=== PATIENT | female | born 1995 | race Two or more races ===

== ENCOUNTER 2017-01-15 21:27 | Emergency (ER) | payer OTHER ==
[~2017-01-15] VITALS: Ht 170.2 cm; Wt 81.6 kg
[2017-01-15] MEDS ORDERED: NKM (21:34)
--- NOTE | 2017-01-15 21:43 | Emergency Room Report ---
History of Present Illness General Chief Complaint: Back Pain-No Injury Source: Patient Present Illness HPI This is a 21-year-old female with no past medical history. She presents with chief complaint of left lower back pain. Onset for last few days. Hurts when she been over. Hurts when she sat or room. Time. No radiation. Noncontrast bowel or urine. She also feeling nauseous. Last menstrual flow was 15th. Her menstruation has been irregular sister lasts maybe. No other complaint. No dysuria frequency. Allergies: Coded Allergies: No Known Allergies (Unverified , 01/15/17) Patient History Past Medical History: see triage record, old chart reviewed Past Surgical History: none Pertinent Family History: none Social History: Denies: smoking Last Menstrual Period: nov Now: No Immunizations: other Reviewed Nursing Documentation: PMH: Agreed, PSxH: Agreed Nursing Documentation-PMH Past Medical History: No Stated History Review of Systems Eye: Denies: blurred vision, eye pain ENT: Denies: ear pain, nose congestion, throat swelling Respiratory: Denies: cough, shortness of breath Cardiovascular: Denies: chest pain, palpitations Gastrointestinal: Denies: abdominal pain, diarrhea, nausea, vomiting Musculoskeletal: Reports: back pain, Denies: joint pain Skin: Denies: rash Neurological: Denies: headache, numbness Endocrine: Denies: increased thirst, increased urine Hematologic/Lymphatic: Denies: easy bruising All Other Systems: negative except mentioned in HPI Physical Exam Vital Signs Date Time Temp Pulse Resp B/P Pulse Ox O2 Delivery O2 Flow Rate FiO2 01/15/17 21:28 97.9 102 16 131/70 99 Room Air vitals normal Sp02 EP Interpretation: reviewed, normal General Appearance: well appearing, no apparent distress, alert Head: normocephalic, atraumatic Eyes: bilateral eye EOMI, bilateral eye PERRL ENT: hearing grossly normal, normal pharynx Neck: full range of motion, supple, no meningismus Respiratory: chest non-tender, lungs clear, normal breath sounds Cardiovascular #1: regular rate, rhythm, no murmur Gastrointestinal: normal bowel sounds, non tender, no mass, no organomegaly, no bruit, non-distended Musculoskeletal: back normal - Mild tenderness over the left lower paraspinous muscle of the lumbar spine. No step-off. No anesthesia., gait/station normal, normal range of motion Neurologic: alert, oriented x3 Psychiatric: mood/affect normal Skin: warm/dry Medical Decision Making Diagnostic Impression: Primary Impression: UTI (urinary tract infection) during Qualified Codes: O23.41 - Unspecified infection of urinary tract in , first trimester Additional Impression: Qualified Codes: Z3A.01 - Less than 8 weeks gestation of ER Course Patient presents with 2 issues. She complaining of feeling nauseous and is . No bleeding or pain. I see no criteria for emergent ultrasound. I did send a beta hCG level. She also has back pain which is probably muscle skeletal versus early pyelonephritis versus a descending UTI. She does have a urinary tract infection. We'll go ahead and treat. No evidence of polynephritis. No evidence of sepsis. We'll discharge home. Last Vital Signs Date Time Temp Pulse Resp B/P Pulse Ox O2 Delivery O2 Flow Rate FiO2 01/15/17 21:28 97.9 102 16 131/70 99 Room Air Status: improved Disposition: HOME, SELF-CARE Condition: Stable Scripts Ondansetron (Zofran) 4 Mg Tablet 4 MG ORAL Q6H Y for Nausea & Vomiting, #30 TAB 0 Refills Prov: MARC BROWNE M.D. 01/15/17 Cephalexin* (KEFLEX*) 500 Mg Capsule 500 MG ORAL TID, #21 CAP 0 Refills Prov: MARC BROWNE M.D. 01/15/17 Additional Instructions: Followup with your Dr. in 2-3 days. Take a vitamins every day. Return for increasing pain, fever, chills, or any concern. MARC BROWNE M.D. Jan 15, 2017 21:43
[2017-01-15] MEDS ORDERED: Acetaminophen 500mg (ES) tab ORAL ONE (21:45)
[2017-01-15 22:04] LABS: APPEARANCE,URINE SLIGHTLY CLOUDY; KETONES,URINE NEGATIVE (NEGATIVE); LEUKOCYTE ESTERASE ,URINE 3+ (NEGATIVE); NITRITE,URINE NEGATIVE (NEGATIVE); PH,URINE 5 (4.5-8.0); PROTEIN,URINE NEGATIVE (NEGATIVE); UROBILINOGEN,URINE NORMAL MG/DL (0.0-1.0)
[2017-01-15 22:14] LABS: BACTERIA,URINE MODERATE /HPF; RBC,URINE 0-2 /HPF (0 - 2); SQUAMOUS EPITHELIAL CELL,UR FEW /LPF (NONE/OCC)
[2017-01-15] MEDS ORDERED: ZOFRAN4 MG ORAL (22:26)
[2017-01-15] MEDS ORDERED: KEFLEX500 MG ORAL (22:26)
[2017-01-15] MEDS ORDERED: Cephalexin 500mg cap ORAL ONE (22:30)
[2017-01-15 22:39] VITALS: BP 129/73
[2017-01-15 22:40] VITALS: BP 129/73
== END 2017-01-15 22:41 | disposition home or self-care (01) ==
LOC: EMR 21:55
DX: O23.41 Unspecified infection of urinary tract in pregnancy, first trimester (principal); Z3A.01 Less than 8 weeks gestation of pregnancy
CPT/HCPCS: 36415; 81003; 81025; 84702; 87086; 99284

== ENCOUNTER 2017-01-16 18:56 | Emergency (ER) | payer OTHER ==
[~2017-01-16] VITALS: Ht 172.7 cm; Wt 81.6 kg
[~2017-01-16 18:56] MED LIST: KEFLEX500 MG ORAL; NKM; ZOFRAN4 MG ORAL
[2017-01-16 19:30] VITALS: BP 120/63
[2017-01-16 19:57] VITALS: BP 120/63
--- NOTE | 2017-01-17 00:24 | Emergency Room Report ---
History of Present Illness General Chief Complaint: Multiple Trauma/Fall Source: Patient Present Illness HPI Patient is a 21-year-old female presented after a fall at work. Patient reported having a slip and fall. She had recently been seen for low back pain after a urinary tract infection.Patient was noted to have positive test on prior visit. Patient had been started on Keflex. The patient concerned that she may have some problem after the fall. Patient per having some mild knee pain. The patient is ambulatory without assistance. Allergies: Coded Allergies: No Known Allergies (Unverified , 01/15/17) Patient History Past Medical History: see triage record Last Menstrual Period: nov Now: Yes - 7 weeks Reviewed Nursing Documentation: PMH: Agreed, PSxH: Agreed Nursing Documentation-PMH Past Medical History: No Stated History Review of Systems All Other Systems: negative except mentioned in HPI Physical Exam Vital Signs Date Time Temp Pulse Resp B/P Pulse Ox O2 Delivery O2 Flow Rate FiO2 01/16/17 19:20 98.1 90 16 120/63 99 Room Air Sp02 EP Interpretation: reviewed, normal General Appearance: normal inspection, well appearing, no apparent distress, alert, GCS 15 Head: atraumatic ENT: normal ENT inspection, hearing grossly normal, normal voice Neck: normal inspection, full range of motion, supple, no bony tend Respiratory: normal inspection, lungs clear, normal breath sounds, no respiratory distress, no retraction, no wheezing Cardiovascular #1: regular rate, rhythm, no edema Gastrointestinal: normal inspection, normal bowel sounds, non tender, soft, no guarding, no hernia Genitourinary: no CVA tenderness Musculoskeletal: normal inspection, back normal, normal range of motion Neurologic: normal inspection, alert, responsive, speech normal Psychiatric: normal inspection, judgement/insight normal, mood/affect normal Skin: normal inspection, normal color, no rash Medical Decision Making Diagnostic Impression: Primary Impression: Fall Additional Impressions: Lumbosacral strain ER Course Patient presented for fall. Differential diagnosis included was not limited to the contusion, sprain, fracture among others. Patient was noted to be . The patient does not appear require x-ray imaging at this time. Patient was given the patient prior prescriptions for antibiotics. The bedside ultrasound showed no evident free fluid or intrauterine is appears the patient patient is very early . The patient is advised followup with [facility]. Last Vital Signs Date Time Temp Pulse Resp B/P Pulse Ox O2 Delivery O2 Flow Rate FiO2 01/16/17 19:57 98.1 16 120/63 99 Room Air 01/16/17 19:30 94 Status: improved Disposition: HOME, SELF-CARE Condition: Stable Referrals: [facility],REFERR[facility] (PCP) Patient Instructions: Back Pain in Jamie Gonsalez Jan 17, 2017 00:24
== END 2017-01-16 20:00 | disposition home or self-care (01) ==
LOC: EMR 19:58
DX: O26.891 Other specified pregnancy related conditions, first trimester (principal); Z3A.00 Weeks of gestation of pregnancy not specified; S39.012A Strain of muscle, fascia and tendon of lower back, initial encounter; W01.0XXA Fall on same level from slipping, tripping and stumbling without subsequent striking against object, initial encounter; Y92.9 Unspecified place or not applicable; Y99.0 Civilian activity done for income or pay
CPT/HCPCS: 99284

== ENCOUNTER 2017-02-10 15:06 | Emergency (ER) | payer OTHER ==
[~2017-02-10] VITALS: Ht 165.1 cm; Wt 90.7 kg
[2017-02-10] MEDS ORDERED: Metoclopramide 10mg/2ml Inj IVP ONE (15:30)
--- NOTE | 2017-02-10 15:39 | Emergency Room Report ---
History of Present Illness General Chief Complaint: Vomiting Source: Patient Present Illness HPI The patient is a 21-year-old female at 7 weeks gestation presenting for nausea and vomiting which began one week prior. The patient was seen at [facility] yesterday where ultrasound was done and was unremarkable. The patient states that she has had continued nausea and has vomited 3 times this morning. Patient is unable to eat or drink as usual. The pt denies other symptoms including F, chills, abd pain, vaginal DC, hematuria, flank pain, REGAN, dizziness , swelling Allergies: Coded Allergies: No Known Allergies (Unverified , 01/15/17) Patient History Past Medical History: see triage record Pertinent Family History: none Reviewed Nursing Documentation: PMH: Agreed, PSxH: Agreed Nursing Documentation-PMH Past Medical History: No Stated History Review of Systems All Other Systems: negative except mentioned in HPI Physical Exam Vital Signs Date Time Temp Pulse Resp B/P Pulse Ox O2 Delivery O2 Flow Rate FiO2 02/10/17 15:26 98.1 118 20 131/71 99 Room Air Sp02 EP Interpretation: reviewed, normal General Appearance: no apparent distress, alert, GCS 15, non-toxic Head: normocephalic, atraumatic Eyes: bilateral eye PERRL, bilateral eye normal inspection ENT: hearing grossly normal, normal pharynx, no angioedema, normal voice Neck: full range of motion, supple/symm/no masses Respiratory: chest non-tender, lungs clear, normal breath sounds, speaking full sentences Gastrointestinal: normal bowel sounds, soft, no mass, no guarding Genitourinary: normal inspection, no CVA tenderness Musculoskeletal: back normal, gait/station normal, normal range of motion, non- tender Neurologic: alert, oriented x3, responsive, motor strength/tone normal, sensory intact, speech normal Psychiatric: judgement/insight normal, memory normal, mood/affect normal, no suicidal/homicidal ideation Skin: normal color, no rash, warm/dry, well hydrated Lymphatic: no adenopathy Medical Decision Making PA Attestation Dr. barrios is my supervising physician. Patient management was discussed with my supervising physician Diagnostic Impression: Primary Impression: UTI in Additional Impression: Nausea/vomiting in ER Course The patient is a 21-year-old female at 7 weeks gestation presenting for nausea and vomiting Differential diagnoses considered include but not limited to Early , threatened , UTI PE: Vitals WNL. NAD. Abdomen: Normal appearance. Non distended. No ecchymosis. Normal BS. Non TTP. No McBurney point tenderness. No guarding. No CVA tenderness Labs: CBC shows mild leukocytosis. No anemia CMP unremarkable. No signs of dehydration Urinalysis is consistent with urinary tract infection Beta hCG is low for suspected gestational age. The patient is given IV fluids and Reglan and is feeling better. Patient has not vomited The patient is informed of her results and needs to FU with OBGYN as discussed The patient is discharged with a prescription for Keflex, vitamin B 6, and doxylamine Laboratory Tests Test 02/10/17 15:30 02/10/17 15:42 Urine Color Pale yellow Urine Appearance Slightly cloudy Urine pH 6 (4.5-8.0) Urine Specific [place] 1.025 (1.005-1.035) Urine Protein Negative (NEGATIVE) Urine Glucose (UA) Negative (NEGATIVE) Urine Ketones Negative (NEGATIVE) Urine Occult Blood Negative (NEGATIVE) Urine Nitrite Negative (NEGATIVE) Urine Bilirubin Negative (NEGATIVE) Urine Urobilinogen Normal MG/DL (0.0-1.0) Urine Leukocyte Esterase 3+ (NEGATIVE) H Urine RBC 5-10 /HPF (0 - 2) H Urine WBC 10-15 /HPF (0 - 2) H Urine Squamous Epithelial Cells Many /LPF (NONE/OCC) H Urine Bacteria Moderate /HPF (NONE) H Urine HCG, Qualitative Positive White Blood Count 11.4 K/UL (4.8-10.8) H Red Blood Count 4.39 M/UL (4.20-5.40) Hemoglobin 13.7 G/DL (12.0-16.0) Hematocrit 40.4 % (37.0-47.0) Mean Corpuscular Volume 92 FL (80-99) Mean Corpuscular Hemoglobin 31.1 PG (27.0-31.0) H Mean Corpuscular Hemoglobin Concent 33.8 G/DL (32.0-36.0) Red Cell Distribution Width 11.3 % (11.6-14.8) L Platelet Count 349 K/UL (150-450) Mean Platelet Volume 7.5 FL (6.5-10.1) Neutrophils (%) (Auto) 63.7 % (45.0-75.0) Lymphocytes (%) (Auto) 26.9 % (20.0-45.0) Monocytes (%) (Auto) 7.6 % (1.0-10.0) Eosinophils (%) (Auto) 0.7 % (0.0-3.0) Basophils (%) (Auto) 1.0 % (0.0-2.0) Sodium Level 140 mEQ/L (135-145) Potassium Level 4.0 mEQ/L (3.4-4.9) Chloride Level 100 mEQ/L (98-107) Carbon Dioxide Level 23 mEQ/L (20-30) Anion Gap 17 (5-15) H Blood Urea Nitrogen 12 mg/dL (7-23) Creatinine 0.5 mg/dL (0.5-0.9) Estimate Glomerular Filtration Rate > 60 mL/min (>60) Glucose Level 99 mg/dL (74-106) Calcium Level 9.8 mg/dL (8.6-10.2) Total Bilirubin 0.3 mg/dL (0.0-1.2) Aspartate Amino Transferase (AST) 28 U/L (5-40) Alanine Aminotransferase (ALT) 32 U/L (3-33) Alkaline Phosphatase 85 U/L (35-104) Total Protein 7.3 g/dL (6.6-8.7) Albumin 4.1 g/dL (3.5-5.2) Globulin 3.2 g/dL Albumin/Globulin Ratio 1.2 (1.0-2.7) Lipase 28 U/L (< 60) Human Chorionic Gonadotropin, Quant 81878 mIU/mL Lab Results Impression CBC shows mild leukocytosis. No anemia CMP unremarkable. No signs of dehydration Urinalysis is consistent with urinary tract infection Beta hCG is low for suspected gestational age. Last Vital Signs Date Time Temp Pulse Resp B/P Pulse Ox O2 Delivery O2 Flow Rate FiO2 02/10/17 15:26 98.1 118 20 131/71 99 Room Air Status: improved Disposition: HOME, SELF-CARE Condition: Improved Scripts Pyridoxine Hcl (PYRIDOXINE HCL) 25 Mg Tablet 25 MG PO Q8HR, #30 TAB Prov: TERZIAN,GRAYSON P.A. 02/10/17 Doxylamine Succinate (SLEEP AID) 25 Mg Tablet 25 MG PO BID, #30 TAB Prov: TERZIAN,GRAYSON P.A. 02/10/17 Cephalexin* (KEFLEX*) 500 Mg Capsule 500 MG ORAL EVERY 6 HOURS, #28 CAP Prov: GRAYSON CLEMENS 02/10/17 GRAYSON CLEMENS Feb 10, 2017 15:39
[2017-02-10 15:56] LABS: EOSINOPHILS % (AUTO) 0.7 % (0.0-3.0); LYMPHOCYTES % (AUTO) 26.9 % (20.0-45.0); MEAN CORPUSCULAR HEMOGLOBIN 31.1 PG (27.0-31.0); MEAN CORPUSCULAR HGB CONC 33.8 G/DL (32.0-36.0); MEAN CORPUSCULAR VOLUME 92 FL (80-99); MEAN PLATELET VOLUME 7.5 FL (6.5-10.1); MONOCYTES % (AUTO) 7.6 % (1.0-10.0); NEUTROPHILS % (AUTO) 63.7 % (45.0-75.0); PLATELET COUNT 349 K/UL (150-450); RED BLOOD COUNT 4.39 M/UL (4.20-5.40); RED CELL DISTRIBUTION WIDTH 11.3 % (11.6-14.8); WHITE BLOOD COUNT 11.4 K/UL (4.8-10.8)
[2017-02-10 16:15] VITALS: BP 131/71
[2017-02-10 16:23] LABS: ALANINE AMINOTRANSFERASE 32 U/L (3-33); ALBUMIN/GLOBULIN RATIO 1.2 (1.0-2.7); ANION GAP 17 (5-15); ASPARTATE AMINO TRANSFERASE 28 U/L (5-40); CALCIUM 9.8 mg/dL (8.6-10.2); CARBON DIOXIDE 23 mEQ/L (20-30); CHLORIDE 100 mEQ/L (98-107); CREATININE 0.5 mg/dL (0.5-0.9); GLOMERULAR FILTRATION RATE > 60 mL/min (>60); HEMOLYSIS 5; LIPASE 28 U/L (< 60); SODIUM 140 mEQ/L (135-145); TOTAL PROTEIN 7.3 g/dL (6.6-8.7)
[2017-02-10 16:51] LABS: APPEARANCE,URINE SLIGHTLY CLOUDY; KETONES,URINE NEGATIVE (NEGATIVE); LEUKOCYTE ESTERASE ,URINE 3+ (NEGATIVE); NITRITE,URINE NEGATIVE (NEGATIVE); PH,URINE 6 (4.5-8.0); PROTEIN,URINE NEGATIVE (NEGATIVE); UROBILINOGEN,URINE NORMAL MG/DL (0.0-1.0)
[2017-02-10 16:59] LABS: BACTERIA,URINE MODERATE /HPF; SQUAMOUS EPITHELIAL CELL,UR MANY /LPF (NONE/OCC)
[2017-02-10] MEDS ORDERED: SLEEP AID25 M1 PO (17:19)
[2017-02-10] MEDS ORDERED: CEPHALEXIN500 MG ORAL (17:19)
[2017-02-10] MEDS ORDERED: PYRIDOXINE HCL25 MG PO (17:19)
[2017-02-10 17:27] VITALS: BP 115/72
== END 2017-02-10 17:42 | disposition home or self-care (01) ==
LOC: EMR 16:31
DX: O23.41 Unspecified infection of urinary tract in pregnancy, first trimester (principal); O26.891 Other specified pregnancy related conditions, first trimester; R11.2 Nausea with vomiting, unspecified; Z3A.01 Less than 8 weeks gestation of pregnancy
CPT/HCPCS: 36415; 80053; 81003; 81025; 83690; 84702; 85025; 87086; 96360; 96374; 99284; J2765

== ENCOUNTER 2018-05-14 07:24 | Emergency (ER) | payer MEDICAID, OTHER ==
[~2018-05-14] VITALS: Ht 167.6 cm; Wt 99.8 kg
[~2018-05-14 07:24] MED LIST changes: +CEPHALEXIN500 MG ORAL; +PYRIDOXINE HCL25 MG PO; +SLEEP AID25 M1 PO
[2018-05-14 07:35] VITALS: BP 120/62
--- NOTE | 2018-05-14 07:38 | Emergency Room Report ---
History of Present Illness General Chief Complaint: Flu Like Symptoms Source: Patient Present Illness HPI Patient has been ill since 05/08. Sore throat, cough - phlegm not with color, congestion, aches. No documented fever, but feels feverish and occasional chills. No NVD or dysuria. Had taken tylenol with some improvement. No wheezing (had had in past visits). C/O pain in her throat and head 8/10, burning in throat and pressure in head. Better with meds. Cough had worsened in last 24 hours. Menses is irregular and only has spotting due to IUD. She doesn't think she is . She had been working, but now feels ill and unable. 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 Reviewed Nursing Documentation: PMH: Agreed; PSxH: Agreed Nursing Documentation-PMH Past Medical History: No Stated History Review of Systems All Other Systems: negative except mentioned in HPI Physical Exam Vital Signs Date Time Temp Pulse Resp B/P (MAP) Pulse Ox O2 Delivery O2 Flow Rate FiO2 05/14/18 07:26 98.3 87 18 120/62 96 Room Air 98.2 General Appearance: well appearing, no apparent distress, GCS 15, non-toxic Head: normocephalic, atraumatic Eyes: bilateral eye normal inspection, bilateral eye PERRL ENT: hearing grossly normal, normal pharynx - slight pink/red, normal voice, TMs + canals normal, moist mucus membranes Neck: full range of motion, supple Respiratory: chest non-tender, lungs clear, normal breath sounds, no respiratory distress, speaking full sentences Cardiovascular #1: regular rate, rhythm Cardiovascular #2: 2+ radial (L) Gastrointestinal: normal inspection, normal bowel sounds, non tender Genitourinary: no CVA tenderness Musculoskeletal: no calf tenderness Neurologic: alert, oriented x3, normal gait, grossly normal Psychiatric: mood/affect normal Skin: no rash Medical Decision Making Diagnostic Impression: Primary Impression: URI (upper respiratory infection) Qualified Codes: J06.9 - Acute upper respiratory infection, unspecified ER Course Patient presents with URI. Ddx: pharyngitis, viral syndrome, bronchitis, PNA. Based on sy and exam, PNA excluded and imaging not indicated. Lab also not indicated (has IUD and no dysuria). Patient treated here with some improvement. Discussed treatment plan. Patient stable for outpatient observation and treatment. Last Vital Signs Date Time Temp Pulse Resp B/P (MAP) Pulse Ox O2 Delivery O2 Flow Rate FiO2 05/14/18 07:55 98.2 85 18 120/62 96 Room Air 208.8 Status: improved Disposition: HOME, SELF-CARE Condition: Improved Scripts Chlorpheniramine Maleate (CHLOR-TRIMETON) 4 Mg Tablet 4 MG PO Q6HR PRN for congestion, #10 TAB Prov: Humberto Martins M.D. 05/14/18 Guaifenesin/Codeine Phos* (ROBITUSSIN AC*) 118 Ml Liquid 5 ML ORAL Q6H PRN for For Cough, #90 ML 0 Refills Prov: Humberto Martins M.D. 05/14/18 Humberto Martins M.D. May 14, 2018 07:38
[2018-05-14] MEDS ORDERED: CHLOR-TRIMETON4 MG PO (07:42)
[2018-05-14] MEDS ORDERED: GUAIFENESIN-CO118 M1 ORAL (07:42)
[2018-05-14] MEDS ORDERED: Guaifenesin/DM 10ml syrup ORAL PRN (07:45)
[2018-05-14 07:55] VITALS: BP 120/62
== END 2018-05-14 07:55 | disposition home or self-care (01) ==
LOC: EMR 07:40
DX: J06.9 Acute upper respiratory infection, unspecified (principal)
CPT/HCPCS: 99283

== ENCOUNTER 2018-09-16 00:12 | Emergency (ER) | payer SELFPAY ==
[~2018-09-16] VITALS: Ht 167.6 cm; Wt 95.3 kg
[~2018-09-16 00:12] MED LIST changes: +CHLOR-TRIMETON4 MG PO; +GUAIFENESIN-CO118 M1 ORAL
[2018-09-16 00:25] VITALS: BP 127/87
[2018-09-16] MEDS ORDERED: Ketorolac 60mg Inj IM ONE (01:00)
[2018-09-16 01:01] LABS: APPEARANCE,URINE SLIGHTLY CLOUDY; BILIRUBIN, URINE NEGATIVE (NEGATIVE); GLUCOSE, URINE (UA) NEGATIVE (NEGATIVE); KETONES,URINE NEGATIVE (NEGATIVE); LEUKOCYTE ESTERASE ,URINE 1+ (NEGATIVE); NITRITE,URINE NEGATIVE (NEGATIVE); PH,URINE 5 (4.5-8.0); PROTEIN,URINE 1+ (NEGATIVE); UROBILINOGEN,URINE NORMAL MG/DL (0.0-1.0)
[2018-09-16 01:06] LABS: COLOR,URINE YELLOW
[2018-09-16] MEDS ORDERED: Ketorolac 30mg Inj IV ONE (01:15)
[2018-09-16 01:32] LABS: BASOPHILS % (AUTO) 1.1 % (0.0-2.0); EOSINOPHILS % (AUTO) 1.4 % (0.0-3.0); HEMATOCRIT 43.2 % (37.0-47.0); HEMOGLOBIN 14.6 G/DL (12.0-16.0); LYMPHOCYTES % (AUTO) 37.9 % (20.0-45.0); MEAN CORPUSCULAR VOLUME 89 FL (80-99); MONOCYTES % (AUTO) 6.4 % (1.0-10.0); NEUTROPHILS % (AUTO) 53.2 % (45.0-75.0); PLATELET COUNT 322 K/UL (150-450); RED BLOOD COUNT 4.84 M/UL (4.20-5.40); RED CELL DISTRIBUTION WIDTH 11.1 % (11.6-14.8); WHITE BLOOD COUNT 9.4 K/UL (4.8-10.8)
[2018-09-16 01:41] LABS: ANION GAP 11 mmol/L (5-15); BLOOD UREA NITROGEN 13 mg/dL (7-18); CALCIUM 9.4 MG/DL (8.5-10.1); CARBON DIOXIDE 25 MMOL/L (21-32); CHLORIDE 105 MMOL/L (98-107); CREATININE 0.6 MG/DL (0.55-1.30); POTASSIUM 3.8 MMOL/L (3.5-5.1); SODIUM 141 MMOL/L (136-145)
[2018-09-16 01:46] LABS: ALANINE AMINOTRANSFERASE 21 U/L (12-78); ALBUMIN 4.1 G/DL (3.4-5.0); ALKALINE PHOSPHATASE 10 U/L (46-116); ASPARTATE AMINO TRANSFERASE 15 U/L (15-37); BILIRUBIN,TOTAL 0.7 MG/DL (0.2-1.0)
[2018-09-16] MEDS ORDERED: cefTRIAXone 1 GM in NS 55 ML IVPB ONE (02:45)
--- NOTE | 2018-09-16 02:48 | Diagnostic Imaging Report ---
EXAM: XR Pelvis, 1 or 2 Views CLINICAL HISTORY: PAIN TECHNIQUE: Frontal view of the pelvis. COMPARISON: No relevant prior studies available. FINDINGS: Bones/joints: No dislocation. No displaced fracture. No discrete bony lesion. The upper sacrum and iliac crest somewhat limited due to overlying soft tissue/body habitus Soft tissues: IUD present projecting over the central pelvis. IMPRESSION: No acute bony abnormality in the single frontal view. IUD present.
--- NOTE | 2018-09-16 03:49 | Emergency Room Report ---
History of Present Illness General Chief Complaint: Pain Source: Patient Present Illness HPI Patient presents with months of lower back pain. Worsened over last 2 days and having trouble sleeping. Pain is more L sided and radiates down into hip area. Not radiate to lower leg. No numbness. Pain rated 10/10, burning and aching. No constant and worse when bends over. No fevers, blood thinners, oncologic problems. Not feel she is . No dysuria. No rashes. Motrin controlled in past, not now. Hard to sleep with pain. No prior injuries. No h/o arthritis. Job with bending and lifting. No URI sy, cough, chest pain, NVD, change in bowels, extremity pain or edema. Some stress. LNMP normal. No vaginal discharge. 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 Period: 08/14/18 Now: No : 2 Para: 2 Reviewed Nursing Documentation: PMH: Agreed; PSxH: Agreed Nursing Documentation-PMH Past Medical History: No Stated History Review of Systems All Other Systems: negative except mentioned in HPI Physical Exam Vital Signs Date Time Temp Pulse Resp B/P (MAP) Pulse Ox O2 Delivery O2 Flow Rate FiO2 09/16/18 00:14 97.9 90 15 127/87 97 Room Air Sp02 EP Interpretation: reviewed, normal General Appearance: well appearing, no apparent distress, GCS 15 Head: normocephalic Eyes: bilateral eye normal inspection, bilateral eye PERRL ENT: moist mucus membranes Neck: supple Respiratory: lungs clear, normal breath sounds Cardiovascular #1: regular rate, rhythm Cardiovascular #2: 2+ radial (R), 2+ dorsalis pedis (R), 2+ dorsalis pedis (L) Gastrointestinal: normal inspection, normal bowel sounds, non tender, no mass, non-distended Musculoskeletal: gait/station normal, normal range of motion - with L hip and SI joint pain with movement. SLR neg for sciatica, other - min paraspinous tenderness L, more in SI joint area. No bone tenderness Neurologic: alert, oriented x3, motor strength/tone normal, DTRs symmetric, sensory intact, normal gait, speech normal Psychiatric: anxious Skin: normal inspection, warm/dry Medical Decision Making Diagnostic Impression: Primary Impression: Hip bursitis, left Qualified Codes: M70.62 - Trochanteric bursitis, left hip Additional Impression: UTI (urinary tract infection) Qualified Codes: N30.00 - Acute cystitis without hematuria ER Course Patient presents with L back pain radiating to hip. Based on exam, more in hip/ SI joint pain than lower back. DDX: bursitis, sacroiliitis, UTI, strain, muscle spasm, renal stone, pyelonephritis amongst others.. Evaluation with hip/ pelvis xrays, labs including ESR, UA. Treated with toradol and tylenol. Decision to switch to IV from IM. Labs with normal WBC. Normal ESR. UA with pyuria, preg neg. Xrays without sacroiliitis or hip djd noted. IUD noted. Antibiotic given. Patient with resolved pain. Discussed treatment plan and lab results. (Also consider could be renal stone passed - though pain was mechanical on exam.) Lack of fever or leukocytosis with normal ESR doubt PID (risk = IUD) or sacroiliitis. Patient stable for outpatient observation and treatment. Laboratory Tests Test 09/16/18 00:30 09/16/18 01:23 Urine Color Yellow Urine Appearance Slightly cloudy Urine pH 5 (4.5-8.0) Urine Specific [place] 1.025 (1.005-1.035) Urine Protein 1+ (NEGATIVE) H Urine Glucose (UA) Negative (NEGATIVE) Urine Ketones Negative (NEGATIVE) Urine Blood 3+ (NEGATIVE) H Urine Nitrite Negative (NEGATIVE) Urine Bilirubin Negative (NEGATIVE) Urine Urobilinogen Normal MG/DL (0.0-1.0) Urine Leukocyte Esterase 1+ (NEGATIVE) H Urine RBC 2-4 /HPF (0 - 2) H Urine WBC 5-10 /HPF (0 - 2) H Urine Squamous Epithelial Cells Few /LPF (NONE/OCC) Urine Bacteria Few /HPF (NONE) Urine HCG, Qualitative Negative (NEGATIVE) White Blood Count 9.4 K/UL (4.8-10.8) Red Blood Count 4.84 M/UL (4.20-5.40) Hemoglobin 14.6 G/DL (12.0-16.0) Hematocrit 43.2 % (37.0-47.0) Mean Corpuscular Volume 89 FL (80-99) Mean Corpuscular Hemoglobin 30.2 PG (27.0-31.0) Mean Corpuscular Hemoglobin Concent 33.8 G/DL (32.0-36.0) Red Cell Distribution Width 11.1 % (11.6-14.8) L Platelet Count 322 K/UL (150-450) Mean Platelet Volume 7.8 FL (6.5-10.1) Neutrophils (%) (Auto) 53.2 % (45.0-75.0) Lymphocytes (%) (Auto) 37.9 % (20.0-45.0) Monocytes (%) (Auto) 6.4 % (1.0-10.0) Eosinophils (%) (Auto) 1.4 % (0.0-3.0) Basophils (%) (Auto) 1.1 % (0.0-2.0) Erythrocyte Sedimentation Rate 13 MM/HR (0-20) Sodium Level 141 MMOL/L (136-145) Potassium Level 3.8 MMOL/L (3.5-5.1) Chloride Level 105 MMOL/L (98-107) Carbon Dioxide Level 25 MMOL/L (21-32) Anion Gap 11 mmol/L (5-15) Blood Urea Nitrogen 13 mg/dL (7-18) Creatinine 0.6 MG/DL (0.55-1.30) Estimate Glomerular Filtration Rate > 60 mL/min (>60) Glucose Level 98 MG/DL (74-106) Calcium Level 9.4 MG/DL (8.5-10.1) Total Bilirubin 0.7 MG/DL (0.2-1.0) Aspartate Amino Transferase (AST) 15 U/L (15-37) Alanine Aminotransferase (ALT) 21 U/L (12-78) Alkaline Phosphatase 10 U/L (46-116) L Total Protein 8.3 G/DL (6.4-8.2) H Albumin 4.1 G/DL (3.4-5.0) Globulin 4.2 g/dL Albumin/Globulin Ratio 1.0 (1.0-2.7) Other X-Ray Diagnostic Results Other X-Ray Diagnostic Results : X-Ray ordered: hip/pelvis # of Views/Limited Vs Complete: 1 View Indication: Pain EP Interpretation: Yes Interpretation: no dislocation, no soft tissue swelling, no fractures, nonspecific bowel gas, other - IUD Impression: Other Electronically Signed by: Humberto Martins MD Last Vital Signs Date Time Temp Pulse Resp B/P (MAP) Pulse Ox O2 Delivery O2 Flow Rate FiO2 09/16/18 04:10 98.2 77 14 103/54 98 Room Air Status: improved Disposition: HOME, SELF-CARE Condition: Improved Scripts Acetaminophen (Tylenol) 325 Mg Tablet 650 MG ORAL Q6H PRN for Prn Pain/Headache/Temp > 101, #20 TAB 0 Refills Prov: Humberto Martins MD 09/16/18 Nitrofurantoin Monohyd/M-Cryst* (MACROBID 100 MG*) 100 Mg Capsule 100 MG ORAL EVERY 12 HOURS, #14 CAP Prov: Humberto Martins MD 09/16/18 Ibuprofen* (MOTRIN*) 600 Mg Tablet 600 MG ORAL Q6H PRN for For Pain, #20 TAB Prov: Humberto Martins MD 09/16/18 Tramadol Hcl* (ULTRAM*) 50 Mg Tablet 50 MG ORAL Q6H PRN for For Pain, #8 TAB 0 Refills Prov: Humberto Martins MD 09/16/18 Referrals: NOT CHOSEN SANCHEZ/,REFERRING (PCP) Humberto Martins MD Sep 16, 2018 03:49
[2018-09-16] MEDS ORDERED: TYLENOL325 MG ORAL (03:52)
[2018-09-16] MEDS ORDERED: NITROFURANTOIN100 M2 ORAL (03:52)
[2018-09-16] MEDS ORDERED: TRAMADOL HCL50 MG ORAL (03:52)
[2018-09-16] MEDS ORDERED: IBUPROFEN600 MG ORAL (03:52)
[2018-09-16 04:00] VITALS: BP 103/54
[2018-09-16 04:10] VITALS: BP 103/54
== END 2018-09-16 04:10 | disposition home or self-care (01) ==
LOC: EMR 01:05
DX: M70.72 Other bursitis of hip, left hip (principal); N39.0 Urinary tract infection, site not specified
CPT/HCPCS: 36415; 72170; 80053; 81003; 81025; 85025; 85651; 96365; 96375; 99284; J0696; J1885

== ENCOUNTER 2018-10-28 20:54 | Emergency (ER) | payer SELFPAY ==
[~2018-10-28] VITALS: Ht 170.2 cm; Wt 95.3 kg
[~2018-10-28 20:54] MED LIST changes: +IBUPROFEN600 MG ORAL; +NITROFURANTOIN100 M2 ORAL; +TRAMADOL HCL50 MG ORAL; +TYLENOL325 MG ORAL
[2018-10-28] MEDS ORDERED: Acetaminophen 500mg (ES) tab ORAL ONE (21:30)
[2018-10-28 21:55] VITALS: BP 111/61
[2018-10-28 21:58] LABS: BASOPHILS % (AUTO) 1.5 % (0.0-2.0); EOSINOPHILS % (AUTO) 1.4 % (0.0-3.0); HEMOGLOBIN 14.2 G/DL (12.0-16.0); MEAN CORPUSCULAR VOLUME 88 FL (80-99); MONOCYTES % (AUTO) 7.2 % (1.0-10.0); NEUTROPHILS % (AUTO) 49.9 % (45.0-75.0); PLATELET COUNT 249 K/UL (150-450); RED BLOOD COUNT 4.64 M/UL (4.20-5.40); RED CELL DISTRIBUTION WIDTH 10.8 % (11.6-14.8); WHITE BLOOD COUNT 11.7 K/UL (4.8-10.8)
[2018-10-28 22:00] LABS: APPEARANCE,URINE CLEAR; BILIRUBIN, URINE NEGATIVE (NEGATIVE); GLUCOSE, URINE (UA) NEGATIVE (NEGATIVE); KETONES,URINE 1+ (NEGATIVE); LEUKOCYTE ESTERASE ,URINE 1+ (NEGATIVE); NITRITE,URINE NEGATIVE (NEGATIVE); PH,URINE 7 (4.5-8.0); PROTEIN,URINE NEGATIVE (NEGATIVE); UROBILINOGEN,URINE 8 MG/DL (0.0-1.0)
[2018-10-28 22:02] LABS: COLOR,URINE YELLOW
--- NOTE | 2018-10-28 22:05 | Emergency Room Report ---
History of Present Illness General Chief Complaint: Back Pain-No Injury Source: Patient Present Illness HPI 22-year-old female presents ED for evaluation. Patient complaining of back pain with vomiting and diarrhea. States that back pain started about one week ago. Has had on and off back pain. Throbbing, 8 out of 10, nonradiating. denies dysuria or hematuria. Notes nausea and vomiting. Also notes to diarrhea 1 day. States that she took a test at home which states that she may be . Unclear of her last menstrual period. Denies any spotting or discharge. No other aggravating relieving factors. Denies any other associated symptoms Allergies: Coded Allergies: No Known Allergies (Unverified , 01/15/17) Patient History Past Medical History: none Past Surgical History: none Pertinent Family History: none Social History: Denies: smoking, alcohol use, drug use Last Menstrual Period: 2 months Now: No Immunizations: UTD Reviewed Nursing Documentation: PMH: Agreed; PSxH: Agreed Nursing Documentation-PMH Past Medical History: No Stated History Review of Systems All Other Systems: negative except mentioned in HPI Physical Exam Vital Signs Date Time Temp Pulse Resp B/P (MAP) Pulse Ox O2 Delivery O2 Flow Rate FiO2 10/28/18 21:04 98.8 87 18 111/61 99 Sp02 EP Interpretation: reviewed, normal General Appearance: no apparent distress, alert, GCS 15, non-toxic Head: normocephalic, atraumatic Eyes: bilateral eye normal inspection, bilateral eye PERRL ENT: hearing grossly normal, normal pharynx, no angioedema, normal voice Neck: full range of motion, supple/symm/no masses Respiratory: chest non-tender, lungs clear, normal breath sounds, speaking full sentences Cardiovascular #1: regular rate, rhythm, no edema Cardiovascular #2: 2+ carotid (R), 2+ carotid (L), 2+ radial (R), 2+ radial (L) , 2+ dorsalis pedis (R), 2+ dorsalis pedis (L) Gastrointestinal: normal bowel sounds, non tender, soft, non-distended, no guarding, no rebound Rectal: deferred Genitourinary: normal inspection, no CVA tenderness Musculoskeletal: back normal, gait/station normal, normal range of motion, tender - paraspinal lumbar tenderness Neurologic: alert, oriented x3, responsive, motor strength/tone normal, sensory intact, speech normal Psychiatric: judgement/insight normal, memory normal, mood/affect normal, no suicidal/homicidal ideation Reflexes: 3+ bicep (R), 3+ bicep (L), 3+ tricep (R), 3+ tricep (L), 3+ knee (R) , 3+ knee (L) Skin: normal color, no rash, warm/dry, well hydrated Lymphatic: no adenopathy Medical Decision Making Diagnostic Impression: Primary Impression: Lumbosacral strain Qualified Codes: S39.012A - Strain of muscle, fascia and tendon of lower back , initial encounter Additional Impression: Nausea and vomiting Qualified Codes: R11.2 - Nausea with vomiting, unspecified ER Course Hospital Course 22 yo F presents with lower back pain, with nausea and vomiting differential diagnosis: muscle strain, pyelonephritis, UTI Clinical course Patient placed on stretcher. On data warehouse manager. After initial history and physical I ordered labs, IV fluids, Zofran, tylenol Labs - no leukocytosis, no electrolyte abnormalities, LFTs normal, UA unremarkable Discussed findings with patient. Pain is likely muscular. We'll prescribe Tylenol, Robaxin I feel this is a highly complex case requiring extensive working including EKG/ Rhythm strip, Xray/CT/US, Blood/urine lab work, repeat exams while in ED, and administration of strong opiates/narcotics for pain control, admission to hospital or close patient follow up. Diagnosis - lumbosacral strain, nausea and vomiting Stable and discharged to home with prescriptions for tylenol, robaxin. Followup with PMD. Return to ED if symptoms recur or worsen Labs Test 10/28/18 21:16 10/28/18 21:30 Urine Color Yellow Urine Appearance Clear Urine pH 7 (4.5-8.0) Urine Specific [place] 1.010 (1.005-1.035) Urine Protein Negative (NEGATIVE) Urine Glucose (UA) Negative (NEGATIVE) Urine Ketones 1+ (NEGATIVE) Urine Blood 3+ (NEGATIVE) Urine Nitrite Negative (NEGATIVE) Urine Bilirubin Negative (NEGATIVE) Urine Urobilinogen 8 MG/DL (0.0-1.0) Urine Leukocyte Esterase 1+ (NEGATIVE) Urine RBC 5-10 /HPF (0 - 2) Urine WBC 2-4 /HPF (0 - 2) Urine Squamous Epithelial Cells Few /LPF (NONE/OCC) Urine Bacteria Few /HPF (NONE) Urine HCG, Qualitative Negative (NEGATIVE) White Blood Count 11.7 K/UL (4.8-10.8) Red Blood Count 4.64 M/UL (4.20-5.40) Hemoglobin 14.2 G/DL (12.0-16.0) Hematocrit 41.0 % (37.0-47.0) Mean Corpuscular Volume 88 FL (80-99) Mean Corpuscular Hemoglobin 30.6 PG (27.0-31.0) Mean Corpuscular Hemoglobin Concent 34.6 G/DL (32.0-36.0) Red Cell Distribution Width 10.8 % (11.6-14.8) Platelet Count 249 K/UL (150-450) Mean Platelet Volume 7.3 FL (6.5-10.1) Neutrophils (%) (Auto) 49.9 % (45.0-75.0) Lymphocytes (%) (Auto) 40.0 % (20.0-45.0) Monocytes (%) (Auto) 7.2 % (1.0-10.0) Eosinophils (%) (Auto) 1.4 % (0.0-3.0) Basophils (%) (Auto) 1.5 % (0.0-2.0) Sodium Level 141 MMOL/L (136-145) Potassium Level 4.6 MMOL/L (3.5-5.1) Chloride Level 106 MMOL/L (98-107) Carbon Dioxide Level 25 MMOL/L (21-32) Anion Gap 10 mmol/L (5-15) Blood Urea Nitrogen 17 mg/dL (7-18) Creatinine 0.6 MG/DL (0.55-1.30) Estimat Glomerular Filtration Rate > 60 mL/min (>60) Glucose Level 95 MG/DL (74-106) Calcium Level 9.2 MG/DL (8.5-10.1) Total Bilirubin 1.1 MG/DL (0.2-1.0) Direct Bilirubin 0.0 MG/DL (0.0-0.3) Aspartate Amino Transf (AST/SGOT) 29 U/L (15-37) Alanine Aminotransferase (ALT/SGPT) 29 U/L (12-78) Alkaline Phosphatase 103 U/L (46-116) Total Protein 8.7 G/DL (6.4-8.2) Albumin 4.0 G/DL (3.4-5.0) Globulin 4.7 g/dL Albumin/Globulin Ratio 0.9 (1.0-2.7) Lipase 139 U/L (73-393) Human Chorionic Gonadotropin, Quant 1 mIU/mL (1-6) Last Vital Signs Date Time Temp Pulse Resp B/P (MAP) Pulse Ox O2 Delivery O2 Flow Rate FiO2 10/28/18 21:55 98.8 67 18 111/61 99 Status: improved Disposition: HOME, SELF-CARE Condition: Stable Scripts Methocarbamol* (ROBAXIN-750*) 750 Mg Tablet 750 MG PO TID, #21 TAB 0 Refills Prov: Sherif Cardenas MD 10/28/18 Acetaminophen* (TYLENOL EXTRA STRENGTH*) 500 Mg Tablet 500 MG ORAL Q8H PRN for Prn Headache/Temp > 101, #30 TAB 0 Refills Prov: Sherif Cardenas MD 10/28/18 Referrals: NOT CHOSEN IPA/,REFERRING (PCP) Sherif Cardenas MD Oct 28, 2018 22:05
[2018-10-28 22:08] LABS: ANION GAP 10 mmol/L (5-15); BLOOD UREA NITROGEN 17 mg/dL (7-18); CALCIUM 9.2 MG/DL (8.5-10.1); CARBON DIOXIDE 25 MMOL/L (21-32); CHLORIDE 106 MMOL/L (98-107); CREATININE 0.6 MG/DL (0.55-1.30); POTASSIUM 4.6 MMOL/L (3.5-5.1); SODIUM 141 MMOL/L (136-145)
[2018-10-28 22:28] LABS: ALANINE AMINOTRANSFERASE 29 U/L (12-78); ALBUMIN/GLOBULIN RATIO 0.9 (1.0-2.7); ALKALINE PHOSPHATASE 103 U/L (46-116); ASPARTATE AMINO TRANSFERASE 29 U/L (15-37); BILIRUBIN,TOTAL 1.1 MG/DL (0.2-1.0)
[2018-10-28] MEDS ORDERED: TYLENOL EXTRA500 MG ORAL (22:32)
[2018-10-28] MEDS ORDERED: ROBAXIN-750750 MG PO (22:32)
[2018-10-29 00:41] VITALS: BP 111/61
== END 2018-10-28 22:40 | disposition home or self-care (01) ==
LOC: EMR 21:26
DX: S39.012A Strain of muscle, fascia and tendon of lower back, initial encounter (principal); X58.XXXA Exposure to other specified factors, initial encounter; Y92.009 Unspecified place in unspecified non-institutional (private) residence as the place of occurrence of the external cause; R11.2 Nausea with vomiting, unspecified
CPT/HCPCS: 36415; 80053; 81003; 81025; 82248; 83690; 84702; 85025; 96361; 96374; 99284; J2405